=== PATIENT | female | born 1950 | race Caucasian/White ===

== ENCOUNTER 2024-05-22 13:27 | Outpatient (CLI) | payer MEDICARE, OTHER | END 2024-05-22 23:59 | disposition home or self-care (01) | LOC: MRI02 13:27 | PROVIDERS: ATTEND Family Medicine Sports Medicine | DX: M51.370 Other intervertebral disc degeneration, lumbosacral region with discogenic back pain only (principal); M47.26 Other spondylosis with radiculopathy, lumbar region; M77.9 Enthesopathy, unspecified; M16.12 Unilateral primary osteoarthritis, left hip; M53.3 Sacrococcygeal disorders, not elsewhere classified; M48.07 Spinal stenosis, lumbosacral region | CPT/HCPCS: 72148 ==

== ENCOUNTER 2024-10-22 10:30 | Outpatient (CLI) | payer MEDICARE, OTHER | END 2024-10-22 23:59 | disposition home or self-care (01) | LOC: MRI02 10:30 | PROVIDERS: ATTEND Nurse Practitioner Adult Health | DX: S76.012A Strain of muscle, fascia and tendon of left hip, initial encounter (principal); M47.816 Spondylosis without myelopathy or radiculopathy, lumbar region; M46.1 Sacroiliitis, not elsewhere classified; M16.0 Bilateral primary osteoarthritis of hip; M25.552 Pain in left hip; M79.18 Myalgia, other site; S73.192A Other sprain of left hip, initial encounter; X58.XXXA Exposure to other specified factors, initial encounter; Y93.89 Activity, other specified; Y92.89 Other specified places as the place of occurrence of the external cause; Y99.8 Other external cause status | CPT/HCPCS: 73721 ==